=== PATIENT | female | born 1955 | race Caucasian/White ===

== ENCOUNTER 2021-11-19 20:58 | Inpatient (IN) | payer OTHER, MEDICARE ==
[~2021-11-19] VITALS: Ht 167.6 cm; Wt 78.2 kg
[2021-11-20] MEDS ORDERED: fentaNYL PF VIAL 100 MCG/2 ML VIAL IVP PRN (01:00)
[2021-11-20] MEDS ORDERED: LORazepam 0.5 MG TABLET PO PRN ×2 (01:00→01:45)
[2021-11-20] MEDS: IV DEXTROSE 5 %-0.45 % NACL 1,000 ML IV SCH ×4 (01:30→12:00)
[2021-11-20] MEDS ORDERED: fentaNYL PF VIAL 100 MCG/2 ML VIAL IV PRN (01:45)
[2021-11-20] MEDS: PIPERACILLIN/TAZOBACTAM 3.375 GM in IV NORMAL SALINE 50ML 50 ML IV SCH ×6 (02:00→17:32)
[2021-11-20 07:00] VITALS: BP 121/51
[2021-11-20] MEDS: BUDESONIDE 0.5 MG/2 ML NEBU. NEB SCH ×2 (08:00→21:26)
[2021-11-20] MEDS: ALBUTEROL SULFATE 2.5 MG/3 ML NEBU. NEB SCH ×4 (08:00→21:26)
--- NOTE | 2021-11-20 08:53 | PDOC2 ---
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 Worsened yesterday. Denies n/,v/diarrhea. No hx of diverticulitis, no hx of colonoscopy. Past Medical History Cardiovascular: HTN Past Surgical History Past Surgical History: Tubal Ligation Family History Family History: Other (noncontributory to current illness ) Social History 1 pack per day ALCOHOL: occassional Drugs: None Lives: Alone Current Medications Current Medications Current Medications Piperacillin Sod/ Tazobactam Sod 3.375 gm/Sodium Chloride 50 ml @ 100 mls/hr Q6HRS IV ; Start 11/20/21 at 06:00 Dextrose/Sodium Chloride 1,000 ml @ 100 mls/hr Q10H IV ; Start 11/20/21 at 01:30 Lorazepam (Ativan) 0.5 mg PRN QHS PRN PO INSOMNIA; Start 11/20/21 at 01:00 Fentanyl Citrate (Fentanyl 2ml Vial) 50 mcg PRN Q3HRS PRN IVP PAIN; Start 11/20/21 at 01:00 Piperacillin Sod/ Tazobactam Sod 3.375 gm/Sodium Chloride 50 ml @ 100 mls/hr Q6HRS IV ; Start 11/20/21 at 02:00 Fentanyl Citrate (Fentanyl 2ml Vial) 50 mcg PRN Q3HRS PRN IV PAIN; Start 11/20/21 at 01:45 Dextrose/Sodium Chloride 1,000 ml @ 100 mls/hr Q10H IV ; Start 11/20/21 at 02:00 Lorazepam (Ativan) 0.5 mg PRN QHS PRN PO ANXIETY / AGITATION; Start 11/20/21 at 01:45 Albuterol Sulfate (Ventolin Neb Soln) 2.5 mg RTQID NEB ; Start 11/20/21 at 08:00 Budesonide (Pulmicort) 0.5 mg RTBID NEB ; Start 11/20/21 at 08:00 Allergies Allergies: Coded Allergies: No Known Drug Allergies (Unverified , 11/20/21) ROS General: YES: Chills, Other (subjective fevers ) PSYCHOLOGICAL ROS: No: Anxiety, Depression Eyes: No Blurry vision, No Double vision HEENT: No: Sore Throat Hematological and Lymphatic: No: Bleeding Problems, Blood Clots Respiratory: No: Cough, Shortness of breath Cardiovascular: No Chest Pain, No Palpitations Gastrointestinal: Yes Other (see HPI) Genitourinary: No Dysuria, No Hematuria Musculoskeletal: No Joint Pain, No Muscle Pain Neurological: No Impaired Coord/balance, No Numbness/Tingling Skin: No Pruritus, No Rash Physical Exam General: Alert, Oriented X3, Cooperative HEENT: Atraumatic, PERRLA Lungs: Clear to auscultation, Normal air movement Heart: Regular rate, Normal S1, Normal S2 Abdomen: Soft, Other (TTP lower abdomen ) Extremities: No clubbing, No cyanosis Skin: No rashes, No breakdown Neuro: Normal gait, Normal speech Psych/Mental Status: Mental status NL, Mood NL MUSCULOSKELETAL: No joint tenderness, No deformity Assessment/Plan Assessment/Plan perforated diverticulitis abx, bowel rest may need outpt adrenal adenoma evaluated KACY LEE MD 11/20/21 1155: CONSULT Assessment/Plan Assessment/Plan Patient seen and evaluated by me. C/O right sided abd pain, a little better today. Abd soft, mildly ttp rlq. CT reviewed, small micro perforation of diverticulitis. Agree with Los's assessment and plan. SAHRA SHI APRN November 20, 2021 08:53 KACY LEE MD November 20, 2021 11:55
[2021-11-20 10:17] LABS: BASO % 0 % (0-3); EOS % 0 % (0-3); HEMOGLOBIN 11.5 g/dL (12.0-15.5); LYMPH # 1.1 x10^3/uL (1.0-4.8); LYMPH % 10 % (24-48); MEAN CORPUSCULAR HEMOGLOBIN 31 pg (25-35); MEAN CORPUSCULAR HGB CONC 34 g/dL (31-37); MEAN CORPUSCULAR VOLUME 91 fL (79-100); MONO # 0.7 x10^3/uL (0.0-1.1); MONO % 6 % (0-9); NEUT % 83 % (31-73); PLATELET COUNT 259 x10^3/uL (140-400); RED BLOOD COUNT 3.72 x10^6/uL (3.50-5.40); WHITE BLOOD COUNT 10.9 x10^3/uL (4.0-11.0)
[2021-11-20 10:32] LABS: CALCIUM 8.5 mg/dL (8.5-10.1); CREATININE 0.7 mg/dL (0.6-1.0); POTASSIUM 3.9 mmol/L (3.5-5.1)
[2021-11-20 10:37] LABS: ALBUMIN 2.8 g/dL (3.4-5.0); ALBUMIN/GLOBULIN RATIO 0.7 (1.0-1.7); TOTAL BILIRUBIN 0.5 mg/dL (0.2-1.0); TOTAL PROTEIN 6.6 g/dL (6.4-8.2)
--- NOTE | 2021-11-20 10:57 | PN ---
DATE: 11/20/2021 SUBJECTIVE: The patient is resting flat, comfortably in bed, in no apparent distress. On questioning her, she denied any complaint; in particular, denied any nausea, vomiting and denied any diarrhea. Denied any hematochezia or melena. She continued to complain of pain, mostly in the right lower quadrant, well controlled by pain medication, had no fever, chills or rigors. PHYSICAL EXAMINATION: GENERAL: When I examined her, she looked well and was clearly in no apparent respiratory distress. No pallor, jaundice, cyanosis or thyromegaly. No jugular venous distention. No limb edema. VITAL SIGNS: Her heart rate was 82, blood pressure was 121/51, temperature was 98.9, respiratory rate was 18 and oxygen saturation was 90%. HEAD, EYES, EARS, NOSE, AND THROAT: Normocephalic, atraumatic. NECK: Supple. HEART: Showed normal first and second heart sounds. No gallop or murmur. CHEST: Clear to auscultation, no crepitation or rhonchi. ABDOMEN: Distended with tenderness mostly in the right lower quadrant. There is no guarding or rigidity. No organomegaly. All hernial orifices intact. Bowel sounds normal. NEUROLOGIC: She is grossly intact. LABORATORY DATA: Still pending at the time of this dictation. ASSESSMENT: 1. Acute perforated diverticulitis. 2. Hypertension. 3. Chronic obstructive pulmonary disease. 4. Nephrolithiasis. 5. Incidental finding of adrenal adenoma. PLAN: My plan is to continue with n.p.o., continue with IV antibiotic in the form of Zosyn. Continue with IV fluid, pain management and antianxiety. MELISSA/IVIS DR: Lindsey TID: [id number]
[2021-11-20 11:00] VITALS: BP 142/49
--- NOTE | 2021-11-20 12:24 | HP ---
DATE OF SERVICE: 11/20/2021 ADMIT DATE: 11/19/2021 HISTORY OF PRESENT ILLNESS: The patient is a 66-year-old female patient who presented to the Emergency Room of [facility] with a complaint of right lower quadrant abdominal pain. The patient has just retired and came to spend a week with her granddaughter. On her way here from [place], she had fever and abdominal pain. She took aspirin that took away the fever; however, yesterday, she developed worsening abdominal pain, mostly worse in the right lower quadrant. She has had a kidney stone in the past. The patient's only abdominal surgery was a tubal ligation 45 years ago. She denied any dysuria or frequency. Denied any fever or chills. When she arrived to the Emergency Room, she was extensively investigated. In the Emergency Room, has had lab work with a CBC showing leukocytosis of 14.3. Her chemistry was unremarkable. Her serum lipase was 52 and her coronavirus by rapid antigen testing was negative. She did have a CT scan of the abdomen and pelvis, which showed the patient has acute perforated sigmoid diverticulitis, lipid-rich 2.3 cm right adrenal adenoma and does have also colonic diverticulosis. She has a focal sigmoid wall thickening with very sigmoid fat stranding, foci of gas seen in the sigmoid mesentery. No abscess, prominent loops of small bowel in the central abdomen, likely reactive. Normal appendix. No lymphadenopathy. Mild aortoiliac atherosclerotic calcification without dilatation, no ascites. Decompressed urinary bladder, which limits evaluation. Coarse calcification in the uterus, likely calcified fibroid. The patient was transferred to [facility] in consultation with the surgical team and she was kept n.p.o., started on IV Zosyn, IV pain medication and antiemetic. PAST MEDICAL HISTORY: Significant for hypertension and chronic obstructive pulmonary disease. PAST SURGICAL HISTORY: Significant for tubal ligation about 45 minutes. She does have also history of renal stones before. ALLERGIES: No known drug allergies. MEDICATIONS: She is currently on the following medications: She is on lisinopril. FAMILY HISTORY: She has 1 brother and 2 sisters, all older and healthy. Father at age of 82 because of COPD, congestive heart failure. Mother at age of 80 because of COPD, congestive heart failure. 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 She smokes about a pack a day. Drinks alcohol occasionally. Does not use any drugs. She has a son and a daughter. REVIEW OF SYSTEMS: As per history of present illness. PHYSICAL EXAMINATION: GENERAL: On arrival to the Emergency Room, she looked well and was clearly in no apparent respiratory distress. There was no pallor, jaundice, cyanosis or thyromegaly. No jugular venous distention. No lower limb edema. VITAL SIGNS: Her heart rate was 92, blood pressure was 145/53, temperature was 99.5, respiratory rate was 18 and oxygen saturation was 97% on room air. HEAD, EYES, EARS, NOSE, AND THROAT: Normocephalic, atraumatic. NECK: Supple. HEART: Showed normal first and second heart sounds. No gallop, rub or murmur. CHEST: Clear to auscultation, no crepitation or rhonchi. ABDOMEN: The abdomen was distended with tenderness mostly in the right lower quadrant. No guarding or rigidity. No organomegaly. All hernial orifices intact. Bowel sounds normal. NEUROLOGIC: She is grossly intact. LABORATORY DATA: Her lab work this morning showed a white cell count of 14,300; hemoglobin 13; hematocrit 39; MCV 92 and platelet count of 288,000 with a manual differential showed 90% polymorphs, 6% lymphocytes and 4% monocytes. Her chemistry showed a serum sodium 138, potassium 4, chloride 101, bicarbonate 24, anion gap of 13, BUN 10, creatinine 0.7. Estimated GFR was 84 mL per minute. Her glucose was 92, calcium was 9.4. Total bilirubin, AST, ALT, alkaline phosphatase were normal. Total protein 6.9, albumin was 3.7. Serum lipase was 52. Her coronavirus by rapid antigen testing was negative. ASSESSMENT AND PLAN: In summary, this is a 66-year-old female patient who was admitted with acute perforated diverticulitis. The patient was started on IV Zosyn, kept n.p.o., and started on pain medication as well as antiemetic and Dr. Wright was consulted for evaluation and possible surgical intervention if need be. NIKI/CINDI DR: Lindsey TID: [id number]
[2021-11-20 15:00] VITALS: BP 127/53
[2021-11-20 19:15] VITALS: BP 122/47
[2021-11-20 23:40] VITALS: BP 130/48
[2021-11-21] MEDS: IV DEXTROSE 5 %-0.45 % NACL 1,000 ML IV SCH (01:23)
[2021-11-21] MEDS: PIPERACILLIN/TAZOBACTAM 3.375 GM in IV NORMAL SALINE 50ML 50 ML IV SCH ×4 (01:29→17:44)
[2021-11-21 02:58] VITALS: BP 131/61
[2021-11-21 07:00] VITALS: BP 125/47
[2021-11-21 07:12] LABS: HEMATOCRIT 33.7 % (36.0-47.0); HEMOGLOBIN 11.3 g/dL (12.0-15.5); RED BLOOD COUNT 3.7 x10^6/uL (3.50-5.40); RED CELL DISTRIBUTION WIDTH 13.9 % (11.5-14.5); WHITE BLOOD COUNT 8.8 x10^3/uL (4.0-11.0)
[2021-11-21 07:23] LABS: ALBUMIN 2.6 g/dL (3.4-5.0); ALBUMIN/GLOBULIN RATIO 0.6 (1.0-1.7); CALCIUM 8.4 mg/dL (8.5-10.1); CREATININE 0.6 mg/dL (0.6-1.0); GFR 100.3; POTASSIUM 3.4 mmol/L (3.5-5.1); TOTAL BILIRUBIN 0.6 mg/dL (0.2-1.0); TOTAL PROTEIN 6.7 g/dL (6.4-8.2)
[2021-11-21] MEDS: BUDESONIDE 0.5 MG/2 ML NEBU. NEB SCH ×2 (07:39→20:58)
[2021-11-21] MEDS: ALBUTEROL SULFATE 2.5 MG/3 ML NEBU. NEB SCH ×4 (07:39→20:58)
--- NOTE | 2021-11-21 09:27 | PDOC ---
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 moist/pink Lungs: Clear to auscultation, Normal air movement Heart: Regular rate, Normal S1, Normal S2 Abdomen: Soft, Other (mild ttp lower abdomen, no peritoneal signs ) Labs Laboratory Tests Test 11/20/21 10:10 11/21/21 06:30 White Blood Count 10.9 x10^3/uL (4.0-11.0) 8.8 x10^3/uL (4.0-11.0) Red Blood Count 3.72 x10^6/uL (3.50-5.40) 3.70 x10^6/uL (3.50-5.40) Hemoglobin 11.5 g/dL (12.0-15.5) 11.3 g/dL (12.0-15.5) Hematocrit 34.0 % (36.0-47.0) 33.7 % (36.0-47.0) Mean Corpuscular Volume 91 fL (79-100) 91 fL (79-100) Mean Corpuscular Hemoglobin 31 pg (25-35) 31 pg (25-35) Mean Corpuscular Hemoglobin Concent 34 g/dL (31-37) 34 g/dL (31-37) Red Cell Distribution Width 14.0 % (11.5-14.5) 13.9 % (11.5-14.5) Platelet Count 259 x10^3/uL (140-400) 266 x10^3/uL (140-400) Neutrophils (%) (Auto) 83 % (31-73) Lymphocytes (%) (Auto) 10 % (24-48) Monocytes (%) (Auto) 6 % (0-9) Eosinophils (%) (Auto) 0 % (0-3) Basophils (%) (Auto) 0 % (0-3) Neutrophils # (Auto) 9.0 x10^3/uL (1.8-7.7) Lymphocytes # (Auto) 1.1 x10^3/uL (1.0-4.8) Monocytes # (Auto) 0.7 x10^3/uL (0.0-1.1) Eosinophils # (Auto) 0.0 x10^3/uL (0.0-0.7) Basophils # (Auto) 0.0 x10^3/uL (0.0-0.2) Sodium Level 140 mmol/L (136-145) 138 mmol/L (136-145) Potassium Level 3.9 mmol/L (3.5-5.1) 3.4 mmol/L (3.5-5.1) Chloride Level 106 mmol/L (98-107) 105 mmol/L (98-107) Carbon Dioxide Level 26 mmol/L (21-32) 25 mmol/L (21-32) Anion Gap 8 (6-14) 8 (6-14) Blood Urea Nitrogen 8 mg/dL (7-20) 4 mg/dL (7-20) Creatinine 0.7 mg/dL (0.6-1.0) 0.6 mg/dL (0.6-1.0) Estimated GFR (Cockcroft-Gault) 84.0 100.3 BUN/Creatinine Ratio 11 (6-20) 7 (6-20) Glucose Level 105 mg/dL (70-99) 110 mg/dL (70-99) Calcium Level 8.5 mg/dL (8.5-10.1) 8.4 mg/dL (8.5-10.1) Total Bilirubin 0.5 mg/dL (0.2-1.0) 0.6 mg/dL (0.2-1.0) Aspartate Amino Transf (AST/SGOT) 11 U/L (15-37) 14 U/L (15-37) Alanine Aminotransferase (ALT/SGPT) 14 U/L (14-59) 10 U/L (14-59) Alkaline Phosphatase 63 U/L (46-116) 74 U/L (46-116) Total Protein 6.6 g/dL (6.4-8.2) 6.7 g/dL (6.4-8.2) Albumin 2.8 g/dL (3.4-5.0) 2.6 g/dL (3.4-5.0) Albumin/Globulin Ratio 0.7 (1.0-1.7) 0.6 (1.0-1.7) Laboratory Tests Test 11/20/21 10:10 11/21/21 06:30 White Blood Count 10.9 x10^3/uL (4.0-11.0) 8.8 x10^3/uL (4.0-11.0) Red Blood Count 3.72 x10^6/uL (3.50-5.40) 3.70 x10^6/uL (3.50-5.40) Hemoglobin 11.5 g/dL (12.0-15.5) 11.3 g/dL (12.0-15.5) Hematocrit 34.0 % (36.0-47.0) 33.7 % (36.0-47.0) Mean Corpuscular Volume 91 fL (79-100) 91 fL (79-100) Mean Corpuscular Hemoglobin 31 pg (25-35) 31 pg (25-35) Mean Corpuscular Hemoglobin Concent 34 g/dL (31-37) 34 g/dL (31-37) Red Cell Distribution Width 14.0 % (11.5-14.5) 13.9 % (11.5-14.5) Platelet Count 259 x10^3/uL (140-400) 266 x10^3/uL (140-400) Neutrophils (%) (Auto) 83 % (31-73) Lymphocytes (%) (Auto) 10 % (24-48) Monocytes (%) (Auto) 6 % (0-9) Eosinophils (%) (Auto) 0 % (0-3) Basophils (%) (Auto) 0 % (0-3) Neutrophils # (Auto) 9.0 x10^3/uL (1.8-7.7) Lymphocytes # (Auto) 1.1 x10^3/uL (1.0-4.8) Monocytes # (Auto) 0.7 x10^3/uL (0.0-1.1) Eosinophils # (Auto) 0.0 x10^3/uL (0.0-0.7) Basophils # (Auto) 0.0 x10^3/uL (0.0-0.2) Sodium Level 140 mmol/L (136-145) 138 mmol/L (136-145) Potassium Level 3.9 mmol/L (3.5-5.1) 3.4 mmol/L (3.5-5.1) Chloride Level 106 mmol/L (98-107) 105 mmol/L (98-107) Carbon Dioxide Level 26 mmol/L (21-32) 25 mmol/L (21-32) Anion Gap 8 (6-14) 8 (6-14) Blood Urea Nitrogen 8 mg/dL (7-20) 4 mg/dL (7-20) Creatinine 0.7 mg/dL (0.6-1.0) 0.6 mg/dL (0.6-1.0) Estimated GFR (Cockcroft-Gault) 84.0 100.3 BUN/Creatinine Ratio 11 (6-20) 7 (6-20) Glucose Level 105 mg/dL (70-99) 110 mg/dL (70-99) Calcium Level 8.5 mg/dL (8.5-10.1) 8.4 mg/dL (8.5-10.1) Total Bilirubin 0.5 mg/dL (0.2-1.0) 0.6 mg/dL (0.2-1.0) Aspartate Amino Transf (AST/SGOT) 11 U/L (15-37) 14 U/L (15-37) Alanine Aminotransferase (ALT/SGPT) 14 U/L (14-59) 10 U/L (14-59) Alkaline Phosphatase 63 U/L (46-116) 74 U/L (46-116) Total Protein 6.6 g/dL (6.4-8.2) 6.7 g/dL (6.4-8.2) Albumin 2.8 g/dL (3.4-5.0) 2.6 g/dL (3.4-5.0) Albumin/Globulin Ratio 0.7 (1.0-1.7) 0.6 (1.0-1.7) Problem List perforated diverticulitis afebrile, normal wbc continue IV abx, trial clears Justicifation of Admission Dx: Justifications for Admission: Justification of Admission Dx: Yes Comments: diverticulitis KACY LEE MD 11/21/21 1151: SURGICAL PROGRESS NOTE Assessment/Plan Improving on iv abx. Agree with Los's assessment and plan SAHRA SHI APRN November 21, 2021 09:26 KACY LEE MD November 21, 2021 11:51
[2021-11-21 11:00] VITALS: BP 118/53
[2021-11-21] MEDS: POTASSIUM CL 40MEQ D5-0.45NACL 1,000 ML IV SCH (11:26)
[2021-11-21 15:00] VITALS: BP 140/50
[2021-11-21 19:00] VITALS: BP 144/54
[2021-11-21 23:00] VITALS: BP 138/60
[2021-11-22] MEDS: PIPERACILLIN/TAZOBACTAM 3.375 GM in IV NORMAL SALINE 50ML 50 ML IV SCH ×2 (00:40→05:45)
[2021-11-22] MEDS: POTASSIUM CL 40MEQ D5-0.45NACL 1,000 ML IV SCH (02:57)
[2021-11-22 03:00] VITALS: BP 136/62
[2021-11-22 07:00] VITALS: BP 125/59
[2021-11-22] MEDS: ALBUTEROL SULFATE 2.5 MG/3 ML NEBU. NEB SCH ×2 (08:01→11:44)
[2021-11-22] MEDS: BUDESONIDE 0.5 MG/2 ML NEBU. NEB SCH (08:01)
--- NOTE | 2021-11-22 09:40 | PDOC ---
SURGICAL PROGRESS NOTE DATE: 11/22/21 TIME: 09:39 Subjective feeling better taking clears, but does not really like what is available no n/v + flatus ROS: no chills, fevers no CP, palpations no cough, SOA Vital Signs Vital Signs Date Time Temp Pulse Resp B/P (MAP) Pulse Ox O2 Delivery O2 Flow Rate FiO2 11/22/21 08:04 96 Room Air 11/22/21 07:00 98.0 77 18 125/59 (81) 98.0 I&O Intake and Output 11/22/21 07:00 Intake Total 500 ml Balance 500 ml Intake Oral 500 ml # Voids 2 General: Alert, Oriented X3, Cooperative HEENT: Atraumatic, Mucous membr. moist/pink Lungs: Clear to auscultation, Normal air movement Heart: Regular rate, Normal S1, Normal S2 Abdomen: Soft, Other (mild llq ttp) Labs Laboratory Tests Test 11/20/21 10:10 11/21/21 06:30 White Blood Count 10.9 x10^3/uL (4.0-11.0) 8.8 x10^3/uL (4.0-11.0) Red Blood Count 3.72 x10^6/uL (3.50-5.40) 3.70 x10^6/uL (3.50-5.40) Hemoglobin 11.5 g/dL (12.0-15.5) 11.3 g/dL (12.0-15.5) Hematocrit 34.0 % (36.0-47.0) 33.7 % (36.0-47.0) Mean Corpuscular Volume 91 fL (79-100) 91 fL (79-100) Mean Corpuscular Hemoglobin 31 pg (25-35) 31 pg (25-35) Mean Corpuscular Hemoglobin Concent 34 g/dL (31-37) 34 g/dL (31-37) Red Cell Distribution Width 14.0 % (11.5-14.5) 13.9 % (11.5-14.5) Platelet Count 259 x10^3/uL (140-400) 266 x10^3/uL (140-400) Neutrophils (%) (Auto) 83 % (31-73) Lymphocytes (%) (Auto) 10 % (24-48) Monocytes (%) (Auto) 6 % (0-9) Eosinophils (%) (Auto) 0 % (0-3) Basophils (%) (Auto) 0 % (0-3) Neutrophils # (Auto) 9.0 x10^3/uL (1.8-7.7) Lymphocytes # (Auto) 1.1 x10^3/uL (1.0-4.8) Monocytes # (Auto) 0.7 x10^3/uL (0.0-1.1) Eosinophils # (Auto) 0.0 x10^3/uL (0.0-0.7) Basophils # (Auto) 0.0 x10^3/uL (0.0-0.2) Sodium Level 140 mmol/L (136-145) 138 mmol/L (136-145) Potassium Level 3.9 mmol/L (3.5-5.1) 3.4 mmol/L (3.5-5.1) Chloride Level 106 mmol/L (98-107) 105 mmol/L (98-107) Carbon Dioxide Level 26 mmol/L (21-32) 25 mmol/L (21-32) Anion Gap 8 (6-14) 8 (6-14) Blood Urea Nitrogen 8 mg/dL (7-20) 4 mg/dL (7-20) Creatinine 0.7 mg/dL (0.6-1.0) 0.6 mg/dL (0.6-1.0) Estimated GFR (Cockcroft-Gault) 84.0 100.3 BUN/Creatinine Ratio 11 (6-20) 7 (6-20) Glucose Level 105 mg/dL (70-99) 110 mg/dL (70-99) Calcium Level 8.5 mg/dL (8.5-10.1) 8.4 mg/dL (8.5-10.1) Total Bilirubin 0.5 mg/dL (0.2-1.0) 0.6 mg/dL (0.2-1.0) Aspartate Amino Transf (AST/SGOT) 11 U/L (15-37) 14 U/L (15-37) Alanine Aminotransferase (ALT/SGPT) 14 U/L (14-59) 10 U/L (14-59) Alkaline Phosphatase 63 U/L (46-116) 74 U/L (46-116) Total Protein 6.6 g/dL (6.4-8.2) 6.7 g/dL (6.4-8.2) Albumin 2.8 g/dL (3.4-5.0) 2.6 g/dL (3.4-5.0) Albumin/Globulin Ratio 0.7 (1.0-1.7) 0.6 (1.0-1.7) Assessment/Plan improving work toward home on oral abx Justicifation of Admission Dx: Justifications for Admission: Justification of Admission Dx: Yes SAHRA SHI [employer] November 22, 2021 09:40
--- NOTE | 2021-11-22 10:26 | PN ---
DATE: 11/21/2021 SUBJECTIVE: The patient is sitting comfortably in her chair in no apparent distress. She continued to have pain from coughing. Threw up sputum last night and one this morning, but denied any chills, rigors or fever. PHYSICAL EXAMINATION: GENERAL: When I examined her, she looked well and was clearly in no apparent respiratory distress. No pallor, jaundice, cyanosis or thyromegaly. No jugular venous distention. No lower limb edema. VITAL SIGNS: Her heart rate was 82, blood pressure was 125/47, temperature 97.8, respiratory rate was 18 and oxygen saturation was 97% on room air. HEAD, EYES, EARS, NOSE, AND THROAT: Normocephalic, atraumatic. NECK: Supple. HEART: Normal first and second heart sounds. No gallop, rub or murmur. CHEST: Clear to auscultation, no crepitation or rhonchi. ABDOMEN: Distended with tenderness mostly in the right lower quadrant. No guarding or rigidity. No organomegaly. All hernial orifice intact. Bowel sounds normal. NEUROLOGIC: She was grossly intact. Her intake and output are incompletely recorded. LABORATORY DATA: Her lab work this morning showed a white cell count of 8.8, hemoglobin 11, hematocrit 33, MCV 91, and platelet count 266,000. Serum sodium was 138, potassium 3.4, chloride 105, bicarbonate 25, anion gap of 8, BUN 4, creatinine 0.6. Estimated GFR was 100 mL per minute. Her glucose was 110, calcium was 8.4. Total bilirubin, AST, ALT, alkaline phosphatase were normal. Total protein 6.7, albumin was 2.6. ASSESSMENT: 1. Acute perforated diverticulitis. 2. Hypertension. 3. Chronic obstructive pulmonary disease. 4. Nephrolithiasis. 5. Incidental finding . PLAN: Continue with IV antibiotic. Continue with IV fluid. Continue pain management. The patient was seen by the surgical team and she was started on a clear liquid diet. MELISSA/IVIS/MOHAMUD DR: Lindsey TID: [id number]
[2021-11-22] MEDS ORDERED: CIPR500T2 PO (11:37)
[2021-11-22] MEDS ORDERED: METR-34 PO (11:37)
--- NOTE | 2021-11-22 12:49 | NUR ---
Pt. state she is feeling good and ready to go home. She stated she ate her lunch and feels fine.
--- NOTE | 2021-11-22 13:13 | NUR ---
Pt discharged to home with rx, verbalized understanding of discharge instructions.
[2021-11-22] MEDS ORDERED: LACTOBACILLUS RHAMNOSUS GG 1 CAPSULE. PO SCH (21:00)
== END 2021-11-22 13:14 | disposition home or self-care (01) | DRG 392 ==
LOC: 4 NORTH 23:14
PROVIDERS: ADMIT Internal Medicine; ATTEND Internal Medicine
DX: K57.20 Diverticulitis of large intestine with perforation and abscess without bleeding (principal); D35.01 Benign neoplasm of right adrenal gland; F17.210 Nicotine dependence, cigarettes, uncomplicated; I10 Essential (primary) hypertension; N20.0 Calculus of kidney; J44.9 Chronic obstructive pulmonary disease, unspecified; Z87.442 Personal history of urinary calculi; Z98.51 Tubal ligation status; Z82.49 Family history of ischemic heart disease and other diseases of the circulatory system; Z82.5 Family history of asthma and other chronic lower respiratory diseases; Z79.899 Other long term (current) drug therapy
CPT/HCPCS: 36415; 80053; 85025; 85027; 94640; 94760; J2543; J3010; J3480; J7042; G0378; J7613; J7626